=== PATIENT | female | born 1985 | race Caucasian/White ===

== ENCOUNTER 2021-10-08 11:03 | Emergency (ER) | payer OTHER ==
[2021-10-08 12:03] LABS: BUN/CREATININE RATIO 11 (0-10)
[2021-10-08 12:18] LABS: RED BLOOD COUNT 3.87 M/UL (4.00-5.10); WHITE BLOOD COUNT 6.9 K/UL (4.5-11.0)
[2021-10-08 12:19] LABS: HEMOGLOBIN 12.7 gm/dl (12.3-15.3)
[2021-10-08] MEDS ORDERED: TORADOL 10 MG T10 MG PO (15:17)
[2021-10-08] MEDS ORDERED: KLONOPIN0.5 MG PO (23:20)
== END 2021-10-08 15:29 | disposition home or self-care (01) ==
LOC: ER1 11:03
DX: R07.2 Precordial pain (principal); F17.200 Nicotine dependence, unspecified, uncomplicated; Z88.1 Allergy status to other antibiotic agents
CPT/HCPCS: 71045; 80053; 82550; 82553; 84484; 85025; 93005; 96374; 99285; J1885; Q0177

== ENCOUNTER 2021-10-08 22:04 | Emergency (ER) | payer OTHER ==
[~2021-10-08 22:04] MED LIST: TORADOL 10 MG T10 MG PO
[2021-10-08] MEDS ORDERED: KLONOPIN0.5 MG PO (23:20)
== END 2021-10-09 01:34 | disposition home or self-care (01) ==
LOC: ER1 22:04
DX: F13.239 Sedative, hypnotic or anxiolytic dependence with withdrawal, unspecified (principal)
CPT/HCPCS: 99283